=== PATIENT | female | born 1940 | race Caucasian/White ===

== ENCOUNTER 2017-04-07 13:21 | Outpatient (CLI) | payer MEDICARE, OTHER ==
--- NOTE | 2017-04-08 18:50 | XRAY Report ---
CHEST, PA AND LATERAL: 04/07/2017 CLINICAL HISTORY: Chronic cough. FINDINGS: Bony thorax demonstrates mild anterior spurring in the T-spine. Normal cardiac size is seen. Thoracic aorta is normal. The mediastinum is not widened. The pulmona ry parenchyma demonstrates a suggestion of emphysema with flat diaphragms and increased retrosternal airspace as well as mild pulmonary hyperaeration. Patient has dense breast shadows as a result of br east implants. This produces mild obscuration of the mid to inferior aspect of the lungs on PA proje ction. There is a nodular density seen overlying or within the left inferior hemithorax. This proba raj represents a nipple shadow. It measures 1.2 cm. Recommend patient return for PA chest with nipp le markers to further confirm this benign etiology. No additional abnormalities are seen. IMPRESSION: 1. EMPHYSEMA. 2. BILATERAL SILICONE BREAST IMPLANTS ARE SEEN SUPERIMPOSED OVER THE MID TO INFERIOR ASPECT OF EACH HEMITHORAX. THIS PRODUCES SUBOPTIMAL VISUALIZATION OF THE LUNGS ON PA PROJECTION. 3. NODULAR DENSITY MEASURING 1.3 CM IS SEEN IN THE LEFT LOWER LUNG FIELD. THIS PROBABLY REPRESENTS AN ARTIFACT PRODUCED BY A NIPPLE SHADOW SUPERIMPOSED OVER THE LEFT LOWER LOBE. RECOMMEND PATIENT RET URN FOR PA CHEST WITH NIPPLE MARKER VIEWS TO FURTHER CONFIRM THIS BENIGN ETIOLOGY. JOB #: [id number] EXT JOB #:[id number]
== END 2017-04-07 13:22 | disposition home or self-care (01) ==
LOC: DI.N 13:21
PROVIDERS: ATTEND Internal Medicine
DX: J43.9 Emphysema, unspecified (principal); R91.8 Other nonspecific abnormal finding of lung field
CPT/HCPCS: 71020

== ENCOUNTER 2017-04-14 10:26 | Outpatient (CLI) | payer MEDICARE, OTHER ==
--- NOTE | 2017-04-14 12:46 | XRAY Report ---
TWO-VIEW CHEST: 04/14/2017 CLINICAL INDICATION: Possible pulmonary nodule on plain film 04/07/2017. FINDINGS: Frontal and lateral views of the chest were obtained with nipple markers in place. The pr eviously noted abnormality does correlate with the patient's left nipple. The cardiac silhouette is within normal limits. The lungs are clear. No effusion or pneumothorax is present. IMPRESSION: NO EVIDENCE OF PULMONARY NODULE. THE PREVIOUSLY NOTED ABNORMALITY DOES CORRELATE WITH T HE PATIENT'S LEFT NIPPLE. JOB #: [id number] EXT JOB #:[id number]
== END 2017-04-14 10:27 | disposition home or self-care (01) ==
LOC: DI.N 10:26
PROVIDERS: ATTEND Family Medicine
DX: R91.1 Solitary pulmonary nodule (principal)
CPT/HCPCS: 71020

== ENCOUNTER 2017-04-27 09:18 | Outpatient (CLI) | payer MEDICARE, OTHER ==
[2017-04-27] MEDS ORDERED: ALBUTEROL NEB 2.5 MG/3 ML INH ONE (10:00)
== END 2017-04-27 09:19 | disposition home or self-care (01) ==
LOC: RT 09:18
PROVIDERS: ATTEND Family Medicine
DX: R05 Cough (principal); R06.00 Dyspnea, unspecified
CPT/HCPCS: 94060; J7613

== ENCOUNTER 2022-05-16 12:14 | Outpatient (CLI) | payer MEDICARE, OTHER | END 2022-05-16 12:15 | disposition short-term general hospital (02) | LOC: EMS 12:14 | DX: R53.1 Weakness (principal); R41.0 Disorientation, unspecified | CPT/HCPCS: A0425; A0429; A0888; A0999 ==

== ENCOUNTER 2022-06-05 08:07 | Outpatient (CLI) | payer MEDICARE, OTHER | END 2022-06-05 08:08 | disposition E | LOC: EMS 08:07 ==